=== PATIENT | female | born 1975 | race Caucasian/White ===

== ENCOUNTER 2020-05-08 11:06 | Emergency (ER) | payer MEDICAID, SELFPAY ==
[2020-05-08 11:07] VITALS: BP 189/94; PULSE 99; RESP 18; TEMP 36.3; O2SAT 100; BMI 34.7
--- NOTE | 2020-05-08 11:21 | VDLE_ITS ---
Reason For Study: Pain RIGHT LEFT CFV is compressible, spontaneous, phasic, GSV is normal. competent and demonstrates normal CFV is compressible, spontaneous, phasic, augmentation. competent, and demonstrates normal Procedure augmentation. Exam performed portable in ED. FV is compressible, spontaneous, phasic, A preliminary report was called and/or faxed competent and demonstrates normal to Dr. El. augmentation. POP V is compressible, spontaneous, phasic, competent and demonstrates normal augmentation. T/P Trunk is compressible. PTV is compressible. LT PerV is compressible. Dilated, non compressible varicose vein noted Lt lateral, mid calf consistent with acute SVT. Interpretation Summary There is no evidence of left lower extremity deep vein thrombosis. Left great saphenous vein appears patent and compressible segmentally. Superficial thrombophlebitis left lateral mid calf varicose vein. Patent and compressible right common femoral vein Ordering Physician: Rae El Referring Physician: Ale Montilla Performed By: Denise Patel, TIARRA, RVT
--- NOTE | 2020-05-08 11:24 | ED.DCSUM_ITS ---
- ER Visit Summary Date of Service: 05/08/20 Chief Complaint: Left calf pain History of Present Illness: The patient is a 44 F presenting with left calf pain. Patient states this started 2 days ago. She denies injury. Denies recent travel. No personal history of DVT or PE. She does have multiple family members who have had DVT in the past. She denies chest pain or shortness of breath. Denies fever. Denies other complaints. Physical Examination: Vitals are stable. Patient is afebrile. Alert no acute distress. HEENT exam is unremarkable. Neck is supple. Lungs are clear and equal bilaterally. Heart is regular rate and rhythm. Extremities mild left calf tenderness. Varicose veins. Normal pulses. Skin is warm and dry. No focal neurologic deficit. Remainder of exam is unremarkable. Emergency Department Course and Treatment: Venous Doppler left lower extremity shows no evidence of DVT. Noncompressible varicose vein left lateral mid calf consistent with acute SVT. She was advised to take aspirin and use warm compresses. Advised to follow-up with her primary care physician. Advised return to ED for worsening complaints. Disposition: Discharged home Impression: Superficial thrombophlebitis This note was generated with [employer] dictation software. It may contain incorrect words, spelling, and punctuation that were not noted in review of the chart prior to signing ED Disposition - Plan for ED Patient: Referrals: Ale Montilla MD [Primary Care Provider] -
--- NOTE | 2020-05-08 12:35 | ED.DEP ---
ED Disposition - Plan for ED Patient: Instructions: ED Phlebitis Superficial Referrals: Ale Montilla MD [Primary Care Provider] -
== END 2020-05-08 12:41 | disposition home or self-care (01) ==
LOC: ED 12:00
PROVIDERS: Emergency Provider Emergency Medicine; PCP Internal Medicine
DX: I80.252 Phlebitis and thrombophlebitis of left calf muscular vein (principal)
CPT/HCPCS: 93971; 99282

== ENCOUNTER → 2021-01-24 10:16 | Outpatient (CLI) | payer MEDICAID, SELFPAY ==
--- NOTE | 2021-01-24 10:24 | MRI_ITS ---
STUDY: MRI LUMBAR SPINE WITHOUT CONTRAST REASON FOR EXAM: Female, 45 years old. SPONDYLOSIS WITH RADICULOPATHY TECHNIQUE: Standardized fat and water weighted pulse sequences were obtained in the sagittal and axial planes. COMPARISON: 12/24/2018 FINDINGS: T12-L1: Normal endplates. Normal disc height, hydration and morphology. Normal bilateral facet joints. Normal central canal and bilateral lateral recesses. Normal bilateral intervertebral neural foramina. Normal lumbar lordosis. There is no substantial scoliosis. Normal conus medullaris that terminates at the L1/L2. L1-2: Normal endplates. Normal disc height, hydration and morphology. Normal bilateral facet joints. Normal central canal and bilateral lateral recesses. Normal bilateral intervertebral neural foramina. L2-3: Normal endplates. Normal disc height, hydration and morphology. Normal bilateral facet joints. Normal central canal and bilateral lateral recesses. Normal bilateral intervertebral neural foramina. L3-4: Interval posterior decompression and transpedicular fixation with anatomic alignment with no spinal stenosis or neural foraminal stenosis. There is a postoperative seroma posterior to the thecal sac without mass effect. L4-5: Interval posterior decompression and transpedicular fixation with anatomic alignment and no spinal stenosis or neural foraminal stenosis. There is a postoperative seroma posterior to the thecal sac without mass effect. L5-S1: Interval posterior decompression. Mild broad disc protrusion asymmetric to the left similar to the prior study with mild spinal stenosis and mild bilateral neural foraminal stenosis. Normal visualized sacral ala. Normal visualized paraspinous soft tissue structures. MRI/Spine Lumbar (Routine) IMPRESSION: Interval posterior decompression and transpedicular fixation from L3 through L5 with no severe spinal stenosis or neural foraminal stenosis. Electronically Signed: Ermias Crockett MD at 16:14 EDT Tel , Service support ,
== END ==
PROVIDERS: PCP Internal Medicine; Referring Provider Orthopaedic Surgery; Visit Provider Orthopaedic Surgery
DX: M47.26 Other spondylosis with radiculopathy, lumbar region (principal)
CPT/HCPCS: 72148

== ENCOUNTER 2021-05-04 20:19 | Emergency (ER) | payer MEDICAID, SELFPAY ==
[2021-05-04 20:20] VITALS: BP 177/91; PULSE 100; RESP 16; TEMP 36.3; O2SAT 99; BMI 34.2
--- NOTE | 2021-05-04 20:46 | ED.VIS.FALL ---
HPI HPI - Fall History of Present Illness Chief Complaint: Fall Informant: patient Occured/Mechanism Occurred: Yesterday Mechanism/Context: Yes same level fall and Yes slip Usually ambulates: Without assistance Pain/Injury Location: Low back and posterior left hip Pain Location: back Quality of Pain: Sharp and Aching Worsened by: Standing Relieved by: Sitting Narrative Narrative: Patient presents after a fall that occurred yesterday. Patient states she slipped on a wet floor and fell backwards. Patient states she landed on her buttocks and low back. Patient is concerned because she has had a fusion of her lower lumbar area. Patient states the pain radiates into her left foot. Patient states she occasionally gets foot drop due to prior radiculopathy. Patient states her pain is sharp and aching. Patient states her pain is worse with prolonged standing. Patient states her pain is better with sitting. Patient admits to some numbness and tingling in her left leg. Patient denies any head injury or loss of consciousness. [facility] Medical History (Updated 05/04/21 @ 22:[address] Aniceto Gilbert, ) Diabetes Hypercholesterolemia Hypertension Lumbar radiculopathy Home Medications albuterol sulfate [Ventolin HFA] 1 - 2 puff INHALATION Q4H PRN PRN #1 inhaler 12/23/15 [Rx Last Taken Unknown] glipizide 10 mg PO BIDAC 12/23/15 [History Last Taken Unknown] metformin 500 mg PO BID 12/23/15 [History Last Taken Unknown] meloxicam [Mobic] 15 mg PO DAILY 05/03/16 [History Last Taken Unknown] ferrous sulfate [Iron] 325 mg PO BID 04/06/17 [History Last Taken Unknown] hydrochlorothiazide 25 mg PO DAILY 04/06/17 [History Last Taken Unknown] atorvastatin 10 mg PO DAILY 05/08/20 [History Last Taken Unknown] dulaglutide 1.5 mg SQ QWEEK 05/08/20 [History Last Taken Unknown] multivitamin 1 ea PO DAILY 05/08/20 [History Last Taken Unknown] sitagliptin 25 mg PO DAILY 05/08/20 [History Last Taken Unknown] prednisone 40 mg PO DAILY #8 tablet 05/04/21 [Rx Last Taken Unknown] Allergy/AdvReac Type Severity Reaction Status Date / Time erythromycin base Allergy Rash Verified 05/04/21 20:19 latex Allergy Rash Verified 05/04/21 20:19 nalbuphine HCl [From Nubain] Allergy Rash Verified 05/04/21 20:19 sulfamethoxazole Allergy Rash Verified 05/04/21 20:19 [From Bactrim] trimethoprim [From Bactrim] Allergy Rash Verified 05/04/21 20:19 Surgical History H/O section History of herniorrhaphy Hx of cholecystectomy S/P lumbar fusion Status post right foot surgery Social History Smoking Status: Current every day smoker tobacco type: cigarettes ROS ROS ED Constitutional Constitutional ED: Denies chills or fever(s) Eyes Eyes: Denies blurry vision or change in vision ENT ENT ED: Denies rhinorrhea or sore throat Cardiovascular Cardiovascular: Denies chest pain or palpitations Respiratory/Chest Respiratory/Chest: Reports cough; Denies dyspnea Gastrointestinal Gastrointestinal: Denies nausea or vomiting Genitourinary Genitourinary ED: Denies dysuria or hematuria Musculoskeletal Musculoskeletal: Reports back pain and neck pain Integumentary Denies abscess or rash Neurologic Neurologic: Reports headache(s); Denies weakness Allergic/Immunologic Allergic/Immunologic ED: Denies mouth swelling or urticaria EXAM Physical Exam Const Vital Signs: 05/04/21 20:20 05/04/21 21:01 Temperature 97.4 F L Temperature Source Temporal Pulse Rate 100 Respiratory Rate 16 Respiratory Effort Normal Respiratory Pattern Normal Blood Pressure 177/91 H Blood Pressure Mean 119 Pulse Ox 99 Oxygen Delivery Method Room Air Room Air Positive well nourished, well developed and obese General Appearance ED: well developed Nutritional Appearance: obese HEENT Reports normocephalic atraumatic Neck full ROM and supple Back/Spine Back/Spine Narrative: There is tenderness over the left lower lumbar paraspinal muscles and posterior left hip. There is no bony crepitance or step-off. Thoracic Spine / Upper Back: pain with ROM Lumbar Spine / Lower Back: paraspinal muscle tenderness left and straight leg raise negative bilaterally Neuro oriented x3, CN's II-XII intact bilaterally, moves all extremities, no focal motor deficits and no sensory deficits noted Sensorium / Orientation: alert Motor Exam: strength 5/5 throughout Psych mental status grossly normal MDM MDM MDM Narrative Medical decision making narrative: Patient was given a dose of [place] here. X-rays of the lumbar spine were obtained. There are 3 views. On my interpretation, there is no acute fracture or spondylolisthesis. The fusion is intact. There is no fracture of the hardware. Radiologist also interpreted the x-rays and agrees. Patient was given a dose of prednisone here. Patient was given a prescription for a short course of prednisone. Patient was instructed use ice to the area. Patient was instructed to follow-up with her primary care physician in 5 to 7 days. Patient understood and was agreeable with the plan. All questions were answered. Radiography Diagnostic Testing: Radiology Impression Lumbar Spine X-Ray 05/04/21 20:58 IMPRESSION: No acute lumbar spine abnormality or major interval change. Electronically Signed: Loi ChavezonDO at 21:25 EDT Tel [phone], Service support , Discharge Plan Triage Chief Complaint: Fall ED Provider: Aniceto Gilbert Dx/Rx/DC Orders Clinical Impression: Left lumbar radiculopathy Instructions: ED Back Pain (Acute or Chronic) Prescriptions: New prednisone 20 MG tablet 40 mg PO DAILY Qty: 8 RF: 0 No Action glipizide 10 MG tablet 10 mg PO BIDAC RF: 0 metformin 500 MG tablet 500 mg PO BID RF: 0 albuterol sulfate [Ventolin HFA] 1 INHALER inhaler 1 - 2 puff inhalation Q4H PRN PRN (Reason: Wheezing) Qty: 1 RF: 0 meloxicam [Mobic] 15 MG tablet 15 mg PO DAILY RF: 0 ferrous sulfate [Iron (ferrous sulfate)] 325 MG tablet 325 mg PO BID RF: 0 hydrochlorothiazide 12.5 MG capsule 25 mg PO DAILY RF: 0 multivitamin 1 EACH tablet 1 ea PO DAILY RF: 0 atorvastatin 10 MG tablet 10 mg PO DAILY RF: 0 sitagliptin 25 MG tablet 25 mg PO DAILY RF: 0 dulaglutide 1.5 MG/0.5 ML pen injector 1.5 mg SQ QWEEK RF: 0 Primary Care Provider: Ale Montilla Referrals: Ale Montilla MD [Primary Care Provider] - 5-7 Days Disposition Disposition: Home, Self Care
--- NOTE | 2021-05-04 20:58 | RAD_ITS ---
STUDY: X-RAY - LUMBAR SPINE REASON FOR EXAM: Female, 45 years old. Fall yesterday with lower back pain. History of L3-L5 fusion. Bilateral radiculopathy with numbness and tingling in the feet and toes. TECHNIQUE: 3 view(s) of the lumbar spine were obtained. COMPARISON: MRI of the lumbar spine, 01/26/2021. FINDINGS: Normal lumbar lordosis. There is no substantial scoliosis. There is a normal alignment of the vertebrae. There is posterior fusion of L3-L5. The hardware is intact. There is evidence of L3-L5 laminectomies. There is minimal endplate spondylosis at the L to 3 level and at L5-S1. Minimal disc space narrowing at L5 5 S1. The soft tissue structures are unremarkable. RAD/Lumbar Spine 2 or 3 Views IMPRESSION: No acute lumbar spine abnormality or major interval change. Electronically Signed: Loi Lira DO at 21:25 EDT Tel [phone], Service support ,
[2021-05-04] MEDS: HYDROcodone Bitartrate/Apap 5/325 Tablet PO (21:00)
[2021-05-04] MEDS: predniSONE 20 MG Tablet 40 MG PO (22:26)
== END 2021-05-04 22:27 | disposition home or self-care (01) ==
PROVIDERS: Emergency Provider Emergency Medicine; PCP Internal Medicine
DX: M54.16 Radiculopathy, lumbar region (principal); F17.210 Nicotine dependence, cigarettes, uncomplicated; E11.9 Type 2 diabetes mellitus without complications; E78.00 Pure hypercholesterolemia, unspecified; I10 Essential (primary) hypertension; W01.0XXA Fall on same level from slipping, tripping and stumbling without subsequent striking against object, initial encounter; Z79.1 Long term (current) use of non-steroidal anti-inflammatories (NSAID); Z79.52 Long term (current) use of systemic steroids; Z79.84 Long term (current) use of oral hypoglycemic drugs
CPT/HCPCS: 72100; 99283

== ENCOUNTER 2021-12-24 11:22 | Emergency (ER) | payer MEDICAID, SELFPAY ==
[2021-12-24 11:24] VITALS: BP 169/91; PULSE 86; RESP 17; TEMP 36.8; O2SAT 99; BMI 34.9
--- NOTE | 2021-12-24 11:41 | EX.ED.DYSGE1 ---
HPI History of Present Illness Chief Complaint: Edema Detail of Chief Complaint: Swelling face, hands and feet Informant: patient Onset/Context/Timing Onset: Days Context: Sudden Onset Timing: Continuous Quality: Swelling Location: Face, hands and feet Current Severity: Mild Worsened by: Nothing Relieved by: Nothing Associated Symptoms Associated Symptoms: None Narrative Narrative: Patient is a 46-year-old woman with history of kidney disease, type 2 diabetes, hypertension and hypercholesterolemia who presents with swelling of her face, hands and feet. She became concerned when she noted her face is swollen. She is not on an AMBAR inhibitor. She denies headache, visual, ocular auditory symptoms. She denies cardiac Rester symptoms. She denies GI symptoms. She denies paresthesia, anesthesia medics. She denies history of congestive heart failure or heart disease. She denies orthopnea or PND. Prior similar symptoms: No Recent Illness/Hospitalization: No PFSH PFS Medical History Diabetes Hypercholesterolemia Hypertension Lumbar radiculopathy Home Medications albuterol sulfate [Ventolin HFA] 1 - 2 puff INHALATION Q4H PRN PRN #1 inhaler 12/23/15 [Rx Last Taken Unknown] glipizide 10 mg PO BIDAC 12/23/15 [History Last Taken Unknown] metformin 500 mg PO BID 12/23/15 [History Last Taken Unknown] meloxicam [Mobic] 15 mg PO DAILY 05/03/16 [History Last Taken Unknown] ferrous sulfate [Iron] 325 mg PO BID 04/06/17 [History Last Taken Unknown] hydrochlorothiazide 25 mg PO DAILY 04/06/17 [History Last Taken Unknown] atorvastatin 10 mg PO DAILY 05/08/20 [History Last Taken Unknown] dulaglutide 1.5 mg SQ QWEEK 05/08/20 [History Last Taken Unknown] multivitamin 1 ea PO DAILY 05/08/20 [History Last Taken Unknown] sitagliptin 25 mg PO DAILY 05/08/20 [History Last Taken Unknown] prednisone 40 mg PO DAILY #8 tablet 05/04/21 [Rx Last Taken Unknown] Allergy/AdvReac Type Severity Reaction Status Date / Time erythromycin base Allergy Rash Verified 12/24/21 11:23 latex Allergy Rash Verified 12/24/21 11:23 nalbuphine HCl [From Nubain] Allergy Rash Verified 12/24/21 11:23 sulfamethoxazole Allergy Rash Verified 12/24/21 11:23 [From Bactrim] trimethoprim [From Bactrim] Allergy Rash Verified 12/24/21 11:23 Surgical History H/O section History of herniorrhaphy Hx of cholecystectomy S/P lumbar fusion Status post right foot surgery Social History (Updated 12/24/21 @ 11:[address] Lester Carpenter MD) household members: none Smoking Status: Current every day smoker tobacco type: cigarettes substance use type: does not use ROS ROS ED Constitutional Constitutional ED: Denies chills, fever(s), subjective, sweats or weight loss Eyes Eyes: Denies blurry vision, change in vision or diplopia ENT ENT ED: Denies ear pain, rhinorrhea or sore throat Cardiovascular Cardiovascular: Denies chest pain, orthopnea, palpitations, paroxysmal nocturnal dyspnea or racing heartbeat Respiratory/Chest Respiratory/Chest: Denies cough, dyspnea, dyspnea on exertion, orthopnea or paroxysmal nocturnal dyspnea Gastrointestinal Gastrointestinal: Denies abdominal pain, diarrhea, melena, nausea or vomiting Genitourinary Genitourinary ED: Reports urinary frequency; Denies dysuria or hematuria Musculoskeletal Musculoskeletal: Denies arthralgias, back pain, myalgias or neck pain Integumentary Denies Abrasions or rash Neurologic Neurologic: Denies paresthesias or weakness Endocrine Endocrinology: Denies polydipsia, polyphagia or polyuria EXAM Physical Exam Const Vital Signs: 12/24/21 11:24 12/24/21 12:08 Temperature 98.3 F Temperature Source Temporal Pulse Rate 86 Respiratory Rate 17 Respiratory Effort Normal Respiratory Pattern Normal Blood Pressure 169/91 H Blood Pressure Mean 117 Pulse Ox 99 Oxygen Delivery Method Room Air Positive well nourished, well developed and obese General Appearance ED: well developed and NAD; Negative for cyanotic, diaphoretic or pallor Nutritional Appearance: obese HEENT Reports TM's clear and moist mucous membranes HEENT Narrative: There is no evidence of angioedema. Uvula is midline. There is no erythema of the posterior pharynx. Negative for trauma or tenderness Tympanic Membrane ED: Yes TM's clear Eyes PERRL and EOMs intact bilaterally General Eye ED: Negative for pale conjunctiva or scleral icterus Neck no lymphadenopathy, supple and no JVD Neck Narrative: Trachea is midline. There is no in-store expiratory stridor. Resp normal respiratory effort and clear to auscultation bilaterally Cardio regular rate, regular rhythm, S1 normal heart sound, S2 normal heart sound and no murmurs GI normal to inspection, nondistended, normoactive bowel sounds, non-tender and non-distended; Negative for hepatosplenomegaly Palpation: soft Back/Spine no CVA tenderness Thoracic Spine / Upper Back: Negative for thoracic spinal tenderness or paraspinal muscle tenderness Extremity normal to inspection Extremity Narrative: DP and PT pulse are palpable General Extremety ED: Negative for edema or tenderness General Extremity: Negative for edema Neuro oriented x3, CN's II-XII intact bilaterally and no sensory deficits noted Sensorium / Orientation: alert Motor Exam: strength 5/5 throughout Psych mental status grossly normal Skin no rashes or lesions noted and no wounds General Skin Exam: Negative for jaundice or pallor MDM MDM MDM Narrative Medical decision making narrative: There is swelling of her fingers right and left hand. There is no pitting edema. There is no angioedema. Since patient complained of frequency will obtain electrolyte panel assess glucose and anion gap. Also will assess albumin. UA to assess for proteinuria. On my exam there is no pitting edema and uncertain whether her fingers are just shortened stubby or truly swollen. Lab Data Attestation: I reviewed the patient's lab results. Lab results narrative: Albumin and globulin total protein are normal. BUN and creatinine are normal. There is no proteinuria noted. Labs: Laboratory Results - last 24 hr 12/24/21 12/24/21 11:50 12:00 Sodium 137 Potassium 3.8 Chloride 109 H Carbon Dioxide 22.0 Anion Gap 6 BUN 7 Creatinine 0.60 Estim Creat Clear Calc 94.85 Est GFR (MDRD) Af Amer 137 Est GFR (MDRD) Non-Af 113 BUN/Creatinine Ratio 11.6 Glucose 215 H Calcium 8.5 Total Bilirubin 0.20 AST 11 L ALT 28 Alkaline Phosphatase 99 Total Protein 7.1 Albumin 3.6 Globulin 3.5 Albumin/Globulin Ratio 1.0 Urine Color Yellow Urine Clarity Sl. Cloudy Urine pH 6.0 Ur Specific [place] 1.015 Urine Protein 15 H Urine Glucose (UA) 1000 H Urine Ketones Negative Urine Occult Blood Negative Urine Nitrite Negative Urine Bilirubin Negative Urine Urobilinogen Normal Ur Leukocyte Esterase Negative Urine RBC 0 SEEN Urine WBC 0 SEEN Ur Squamous Epith Cells 0-5 SEEN Urine Bacteria 0 SEEN Urine Mucus 0 SEEN Discharge Plan Triage Chief Complaint: Edema ED Provider: Lester Carpenter Dx/Rx/DC Orders Clinical Impression: Bilateral hand swelling, Hypertension, Diabetes Instructions: ED Lymphedema Prescriptions: No Action glipizide 10 MG tablet 10 mg PO BIDAC RF: 0 metformin 500 MG tablet 500 mg PO BID RF: 0 albuterol sulfate [Ventolin HFA] 1 INHALER inhaler 1 - 2 puff inhalation Q4H PRN PRN (Reason: Wheezing) Qty: 1 RF: 0 meloxicam [Mobic] 15 MG tablet 15 mg PO DAILY RF: 0 ferrous sulfate [Iron (ferrous sulfate)] 325 MG tablet 325 mg PO BID RF: 0 hydrochlorothiazide 12.5 MG capsule 25 mg PO DAILY RF: 0 multivitamin 1 EACH tablet 1 ea PO DAILY RF: 0 atorvastatin 10 MG tablet 10 mg PO DAILY RF: 0 sitagliptin 25 MG tablet 25 mg PO DAILY RF: 0 dulaglutide 1.5 MG/0.5 ML pen injector 1.5 mg SQ QWEEK RF: 0 prednisone 20 MG tablet 40 mg PO DAILY Qty: 8 RF: 0 Primary Care Provider: Jarad Tanner Referrals: Jarad Tanner MD [Primary Care Provider] - 3-5 Days if not improving Disposition Disposition: Home, Self Care
[2021-12-24 12:14] LABS: AST(SGOT) 11 U/L (15-37); Alanine Aminotransfer ALT/SGPT 28 U/L (13-56); Albumin, Serum 3.6 g/dL (3.2-5.0); Alkaline Phosphatase 99 U/L (45-117); Anion Gap 6 (5-15); BUN 7 mg/dL (7-18); BUN/Creat Ratio 11.6 RATIO (10-20); Calcium,Total 8.5 mg/dL (8.5-10.1); Chloride 109 mmol/L (98-107); EST Glomerular Filtration Rate 113 mL/min (>60); Est Glom Filt Rate - Afr Amer 137 mL/min (>60); Estimated Creatinine Clearance 94.85 ml/min; Globulin 3.5 g/dL (2.2-4.2); Glucose 215 mg/dL (74-106); Potassium 3.8 mmol/L (3.5-5.1); Protein, Total 7.1 g/dL (6.4-8.2); Sodium Level 137 mmol/L (136-145)
[2021-12-24 12:15] LABS: Bacteria 0 SEEN /hpf (None Seen); Mucous, Urine 0 SEEN /hpf (<or=2+); Red Blood Cells-Urine 0 SEEN /hpf (0-5); White Blood Cells 0 SEEN /hpf (0-5)
[2021-12-24 12:30] LABS: Color, Urine Yellow (Yellow); Glucose, Dipstick 1000 mg/dl (Normal); Ketone-Dipstick Negative (Negative); Leukocyte Esterase-Dipstick Negative /ul (Negative); Nitrite-Dipstick Negative (Negative); Occult Blood-Urine Negative /ul (Negative); Protein-Dipstick 15 mg/dl (Negative); Specific Gravity, Urine 1.015 (1.002-1.030); Urine Bilirubin Dipstick Negative (Negative); Urine Clarity Sl. Cloudy (Clear); Urine Urobilinogen Normal (Normal)
[2021-12-24 12:50] LABS: Squamous Epithelial Cells - UA 0-5 SEEN /hpf (5-10)
[2021-12-24 13:18] VITALS: BP 134/78; PULSE 88; RESP 12; TEMP 36.9; O2SAT 98
== END 2021-12-24 13:18 | disposition home or self-care (01) ==
PROVIDERS: Emergency Provider Emergency Medicine; PCP Internal Medicine; Visit Provider Emergency Medicine
DX: M79.89 Other specified soft tissue disorders (principal); E11.9 Type 2 diabetes mellitus without complications; E78.00 Pure hypercholesterolemia, unspecified; F17.210 Nicotine dependence, cigarettes, uncomplicated; I10 Essential (primary) hypertension
CPT/HCPCS: 80053; 81001; 99282

== ENCOUNTER 2022-01-15 15:55 | Emergency (ER) | payer MEDICAID, SELFPAY ==
[2022-01-15 15:56] VITALS: BP 155/84; PULSE 93; RESP 18; TEMP 36.3; O2SAT 98; BMI 32.9
--- NOTE | 2022-01-15 16:50 | RAD_ITS ---
STUDY: UPRIGHT PA CHEST X-RAY OF 1701 HOURS ON 01/15/2022 REASON FOR EXAM: 46-year-old female with chest pain and shortness of breath. TECHNIQUE: A single view upright PA chest x-ray was performed per protocol. COMPARISON: May 03, 2016. FINDINGS: Mild osteophytic degenerative changes of the thoracic spine. Otherwise, the osseous structures are normal. There is no cardiomegaly or heart failure. No pulmonary infiltrates, atelectasis, effusion, pulmonary mass lesions. The upper portions of lumbar House rods are noted. There is no significant interval change in appearance of the chest since the previous study of May 03, 2016. RAD/Chest 1 View IMPRESSION: 1. No active cardiopulmonary disease. 2. Mild osteophytic degenerative changes of the thoracic spine. 3. No interval change since the previous study of May 03, 2016. Electronically Signed: Surinder Ashford MD at 17:23 EDT ,
[2022-01-15 17:22] VITALS: BP 146/93; O2SAT 100
[2022-01-15 17:24] VITALS: O2SAT 100
--- NOTE | 2022-01-15 17:31 | ED.VIS.CHEST ---
HPI History of Present Illness Chief Complaint: Shortness of Breath Informant: patient Onset/Context/Timing Onset: Days (9-10) Activity at onset: gradual and exertion Timing: Intermittent Quality: Positive for Dull Location: Left Parasternal and Left Chest Relieved By: Rest Associated Symptoms: Positive for Nausea, Vomiting, Diaphoresis, Dyspnea, Cough, Fever, Lightheadedness, Acid Reflux and Palpitations Narrative Narrative: Patient presents with left-sided chest pain that has been intermittent over the last 9 to 10 days. Patient states that she was recently diagnosed with pneumonia. Patient followed up with the urgent care today and was seen by the physician religious assistant there. Patient was then referred to the emergency department for possible cardiac work-up and PE work-up. Patient states her pain is worse with exertion and better with rest. Patient admits to some nausea, vomiting, and diaphoresis. Patient admits to some cough and fever due to her pneumonia recently. Patient also admits to some lightheadedness and dizziness. Patient had a recent caudal block for her back pain but denies any other recent surgery. CVD Risk Factors: Positive for Hypertension, Diabetes, Family History 1' </=55 and Smoking; Negative for Hypercholesterolemia PE Risk Factors: Positive for Recent Travel/Surgery; Negative for Recent Immobilization, Prior DVT or PE, Cancer and OCP + Smoking + >/=35 PFSH PFSH Medical History Diabetes Hypercholesterolemia Hypertension Lumbar radiculopathy Home Medications albuterol sulfate [Ventolin HFA] 1 - 2 puff INHALATION Q4H PRN PRN #1 inhaler 12/23/15 [Rx Last Taken Unknown] glipizide 10 mg PO BIDAC 12/23/15 [History Last Taken Unknown] metformin 500 mg PO BID 12/23/15 [History Last Taken Unknown] meloxicam [Mobic] 15 mg PO DAILY 05/03/16 [History Last Taken Unknown] ferrous sulfate [Iron] 325 mg PO BID 04/06/17 [History Last Taken Unknown] hydrochlorothiazide 25 mg PO DAILY 04/06/17 [History Last Taken Unknown] atorvastatin 10 mg PO DAILY 05/08/20 [History Last Taken Unknown] dulaglutide 1.5 mg SQ QWEEK 05/08/20 [History Last Taken Unknown] multivitamin 1 ea PO DAILY 09/07/20 [History Last Taken Unknown] sitagliptin 25 mg PO DAILY 05/08/20 [History Last Taken Unknown] prednisone 40 mg PO DAILY #8 tablet 05/04/21 [Rx Last Taken Unknown] Allergy/AdvReac Type Severity Reaction Status Date / Time erythromycin base Allergy Rash Verified 01/15/22 15:58 latex Allergy Rash Verified 01/15/22 15:58 nalbuphine HCl [From Nubain] Allergy Rash Verified 01/15/22 15:58 sulfamethoxazole Allergy Rash Verified 01/15/22 15:58 [From Bactrim] trimethoprim [From Bactrim] Allergy Rash Verified 01/15/22 15:58 Surgical History H/O section History of herniorrhaphy Hx of cholecystectomy S/P lumbar fusion Status post right foot surgery Social History household members: none Smoking Status: Current every day smoker tobacco type: cigarettes substance use type: does not use ROS ROS ED Constitutional Constitutional ED: Reports chills, fever(s) and subjective Eyes Eyes: Denies blurry vision or change in vision ENT ENT ED: Reports rhinorrhea and sore throat Cardiovascular Cardiovascular: Reports chest pain and palpitations Respiratory/Chest Respiratory/Chest: Reports cough and dyspnea Gastrointestinal Gastrointestinal: Reports nausea and vomiting; Denies abdominal pain Genitourinary Genitourinary ED: Denies dysuria or hematuria Musculoskeletal Musculoskeletal: Reports back pain and neck pain Integumentary Denies abscess or rash Neurologic Neurologic: Reports headache(s); Denies weakness Allergic/Immunologic Allergic/Immunologic ED: Denies mouth swelling or urticaria EXAM Physical Exam Const Vital Signs: 01/15/22 15:56 01/15/22 17:22 01/15/22 17:24 Temperature 97.3 F L Temperature Source Temporal Pulse Rate 93 Respiratory Rate 18 Respiratory Effort Normal Non-Labored Respiratory Depth Normal Respiratory Pattern Normal Blood Pressure 155/84 H 146/93 H Blood Pressure Mean 107 110 Pulse Ox 98 100 Oxygen Delivery Method Room Air Room Air Room Air 01/15/22 17:57 01/15/22 19:58 Temperature Temperature Source Pulse Rate 88 Respiratory Rate 17 Respiratory Effort Respiratory Depth Respiratory Pattern Blood Pressure 139/90 H Blood Pressure Mean 106 Pulse Ox 100 98 Oxygen Delivery Method Room Air Room Air Positive well nourished, well developed and obese General Appearance ED: well developed and NAD Nutritional Appearance: obese HEENT normocephalic and atraumatic Eyes PERRL and EOMs intact bilaterally Neck supple and no JVD Chest Wall Chest Narrative: There is tenderness to palpation over the left upper chest. There is no bony crepitance or step-off. There is no subcutaneous emphysema noted. Resp normal respiratory effort and clear to auscultation bilaterally Effort and Inspection: Negative for respiratory distress Cardio regular rate, regular rhythm and no murmurs GI normal to inspection, nondistended, normoactive bowel sounds, soft to palpation, non-tender and non-distended Extremity normal to inspection General Extremety ED: Negative for edema or tenderness General Extremity: Negative for edema Neuro oriented x3, CN's II-XII intact bilaterally and no sensory deficits noted Sensorium / Orientation: awake and alert Motor Exam: strength 5/5 throughout Psych mental status grossly normal Heart Score History: Slightly/Non-Suspicious ECG: Normal Age: >45 - <65 years Risk Factors: >/= 3 Risk Factors or History of CAD Troponin: </= Normal Limit Score: 3 MDM MDM MDM Narrative Medical decision making narrative: EKG was obtained. On my interpretation, it showed a normal sinus rhythm with a rate of 89. [place] interval, QRS interval, and QTc intervals were all normal. [place] was normal. There are no acute ST or T wave changes. Portable 1 view chest x-ray was obtained. On my interpretation, lung beltran are clear. There is normal cardiac silhouette. Bony thorax is normal. There is no acute process noted. Radiologist also interpreted the x-ray and agrees. CBC shows a mild leukocytosis of 19.6. Basic metabolic profile was within normal limits. High-sensitivity troponin was less than 3. CTA of the chest was obtained. There is no evidence of pulmonary embolism. There is some bronchitis noted. There is no aortic dissection noted. This was interpreted by the radiologist and reviewed by myself. Patient was advised of her findings. Patient has a HEART score of 3. Patient was advised that this is low risk for acute cardiac event. Patient was instructed to follow-up with her primary care physician in 5 to 7 days. Patient was instructed to finish her antibiotics until gone. Patient understood and was agreeable with the plan. All questions were answered. Lab Data Attestation: I reviewed the patient's lab results. Labs: Laboratory Results - last 24 hr 01/15/22 01/15/22 17:48 17:48 WBC 19.6 H RBC 4.98 Hgb 14.8 Hct 42.6 MCV 85.5 MCH 29.7 MCHC 34.7 RDW Std Deviation 39.3 RDW Coeff of [place] 12.5 Plt Count 415 MPV 9.4 Immature Gran % (Auto) 1.700 H Neut % (Auto) 63.3 Lymph % (Auto) 26.6 [place] % (Auto) 6.8 Eos % (Auto) 1.0 Baso % (Auto) 0.6 Absolute Neuts (auto) 12.4 H Absolute Lymphs (auto) 5.21 H Nucleated RBC % 0 Differential Comment SCANNED Sodium 138 Potassium 3.3 L Chloride 102 Carbon Dioxide 28.0 Anion Gap 8 BUN 16 Creatinine 0.67 Estim Creat Clear Calc 84.94 Est GFR (MDRD) Af Amer 121 Est GFR (MDRD) Non-Af 100 BUN/Creatinine Ratio 24.0 H Glucose 109 H Calcium 9.2 Troponin I High Sens < 3 L Radiography Chest X-Ray - ED: 1 View, Read by ED Physician, Read by Radiologist and No Acute Disease Diagnostic Testing: Clinical Impression(s) from Imaging Studies Chest X-Ray 01/15/22 16:50 IMPRESSION: 1. No active cardiopulmonary disease. 2. Mild osteophytic degenerative changes of the thoracic spine. 3. No interval change since the previous study of May 03, 2016. Electronically Signed: Surinder Ashford MD at 17:23 EDT , Chest CTA 01/15/22 17:36 IMPRESSION: 1. No findings of pulmonary thromboembolism. 2. No evidence of a thoracic aortic dissection or aneurysm. 3. Mild bilateral bronchial wall thickening that may represent a mild bilateral bronchitis. 4. No evidence for pneumonia or pneumonitis. 5. No other evidence of active cardiopulmonary disease. Electronically Signed: Surinder Ashford MD at 19:39 EDT , EKG Initial EKG: Attestation: I personally reviewed and interpreted this EKG as follows: Interpretation: Sinus Rhythm (89) and No Acute Injury Pattern Prior EKG tracings: available for review Prior: Unchanged (12/23/2015) Discharge Plan Triage Chief Complaint: Shortness of Breath ED Provider: Aniceto Gilbert Dx/Rx/DC Orders Clinical Impression: Chest pain, Bronchitis Instructions: ED Chest Pain, Uncertain Cause Prescriptions: No Action glipizide 10 MG tablet 10 mg PO BIDAC RF: 0 metformin 500 MG tablet 500 mg PO BID RF: 0 albuterol sulfate [Ventolin HFA] 1 INHALER inhaler 1 - 2 puff inhalation Q4H PRN PRN (Reason: Wheezing) Qty: 1 RF: 0 meloxicam [Mobic] 15 MG tablet 15 mg PO DAILY RF: 0 ferrous sulfate [Iron (ferrous sulfate)] 325 MG tablet 325 mg PO BID RF: 0 hydrochlorothiazide 12.5 MG capsule 25 mg PO DAILY RF: 0 multivitamin 1 EACH tablet 1 ea PO DAILY RF: 0 atorvastatin 10 MG tablet 10 mg PO DAILY RF: 0 sitagliptin 25 MG tablet 25 mg PO DAILY RF: 0 dulaglutide 1.5 MG/0.5 ML pen injector 1.5 mg SQ QWEEK RF: 0 prednisone 20 MG tablet 40 mg PO DAILY Qty: 8 RF: 0 Primary Care Provider: Jarad Tanner Referrals: Jarad Tanner MD [Primary Care Provider] - 3-5 Days Disposition Disposition: Home, Self Care
--- NOTE | 2022-01-15 17:36 | CT_ITS ---
STUDY: PULMONARY AND CHEST CT ANGIOGRAPHY OF 191 HOURS AND 01/15/2022 REASON FOR EXAM: 46-year-old female with dyspnea. RADIATION DOSAGE (If Supplied By Facility): CTDIvol = ( 11.17 ) mGy, DLP = ( 487.19 ) mGycm TECHNIQUE: The examination was performed with the intravenous administration of IV 100mL Isovue-370. Post-processing of the angiographic images was performed, with multiplanar reformation and 3D reconstruction. Individualized dose optimization techniques were used for this CT. COMPARISON: None. FINDINGS: No cardiomegaly. No hilar or mediastinal lymphadenopathy. No pulmonary infiltrates, atelectasis, effusion, or pulmonary mass lesions. Mild bilateral bronchial wall thickening that may represent a mild bilateral bronchitis. There is no evidence of a pneumonia or pneumonitis. No findings of pulmonary thromboembolism. No evidence of a thoracic aortic dissection or aneurysm. CT/CTA Chest W/WO Contrast IMPRESSION: 1. No findings of pulmonary thromboembolism. 2. No evidence of a thoracic aortic dissection or aneurysm. 3. Mild bilateral bronchial wall thickening that may represent a mild bilateral bronchitis. 4. No evidence for pneumonia or pneumonitis. 5. No other evidence of active cardiopulmonary disease. Electronically Signed: Surinder Ashford MD at 19:39 EDT ,
--- NOTE | 2022-01-15 17:36 | EKG12_ITS ---
Test Reason : SOB Blood Pressure : / mmHG Vent. Rate : 089 BPM Atrial Rate : 089 BPM P-R Int : 160 ms QRS Dur : 088 ms QT Int : 368 ms P-R-T Axes : 059 006 057 degrees QTc Int : 447 ms Normal sinus rhythm Normal ECG Confirmed by YOHAN BARRAGAN, JEOVANY ([id number]), society editor PHILLY BONILLA ([id number]) on 01/18/2022 10:47:45 A M Referred By: ARETHA Confirmed By:SANDRA ALMANZAR MD
[2022-01-15 17:57] VITALS: O2SAT 100
[2022-01-15] MEDS: Aspirin 81 MG TAB.CHEW 324 MG PO (18:26)
[2022-01-15 18:28] LABS: Absolute Lymphocyte Count 5.21 X10^3/uL (0.83-4.51); Absolute Neutrophil Count 12.4 X10^3/uL (2.0-7.7); Basophil# 0.11 X10^3/uL; Basophil% 0.6 % (0-1); Hematocrit 42.6 % (37-47); Hemoglobin 14.8 g/dL (12.0-15.0); Lymphocyte # 5.21 X10^3/ul (0.83-4.51); Lymphocyte % 26.6 % (19-41); Mean Corp Hgb Conc 34.7 g/dL (32-36); Mean Corpuscular Hgb 29.7 pg (27.0-32.0); Mean Corpuscular Volume 85.5 fL (81-99); Mean Platelet Vol. 9.4 fl (6.2-12.0); Monocyte# 1.33 X10^3/uL; Monocyte% 6.8 % (0-10); NRBC Flagged by Analyzer 0 % (0-5); Neutrophil # 12.43 X10^3/uL (2.7-7.7); Neutrophil % 63.3 % (47-70); POSITIVE DIFFERENTIAL YES; POSITIVE MORPHOLOGY YES; Platelet Count 415 K/mm3 (150-450); RBC Distribution Width CV 12.5 % (11.6-14.6); RBC Distribution Width SD 39.3 fl (35.1-43.9); Red Blood Count 4.98 M/mm3 (4.2-5.4); White Blood Count 19.6 K/mm3 (4.4-11.0)
[2022-01-15 18:54] LABS: Anion Gap 8 (5-15); BUN 16 mg/dL (7-18); Calcium,Total 9.2 mg/dL (8.5-10.1); Chloride 102 mmol/L (98-107); Creatinine, Serum 0.67 mg/dL (0.55-1.02); EST Glomerular Filtration Rate 100 mL/min (>60); Est Glom Filt Rate - Afr Amer 121 mL/min (>60); Estimated Creatinine Clearance 84.94 ml/min; Glucose 109 mg/dL (74-106); Potassium 3.3 mmol/L (3.5-5.1); Sodium Level 138 mmol/L (136-145); Troponin-I HS (w/2H Reflex) < 3 pg/mL (3.0-54.0)
[2022-01-15 19:33] LABS: Differential Comment SCANNED; Differential Indicated SCAN CRITERIA MET
[2022-01-15 19:58] VITALS: BP 139/90; PULSE 88; RESP 17; O2SAT 98
[2022-01-15 20:22] LABS: Reflex Troponin-HS? (from REC) Y
[2022-01-15 20:45] VITALS: BP 129/84; O2SAT 98
[2022-01-15 21:05] LABS: Troponin-I HS < 3 pg/mL (3.0-54.0)
== END 2022-01-15 20:45 | disposition home or self-care (01) ==
PROVIDERS: Emergency Provider Emergency Medicine; PCP Internal Medicine; Visit Provider Emergency Medicine
DX: J40 Bronchitis, not specified as acute or chronic (principal); E11.9 Type 2 diabetes mellitus without complications; R11.2 Nausea with vomiting, unspecified; R00.2 Palpitations; E78.00 Pure hypercholesterolemia, unspecified; I10 Essential (primary) hypertension; M54.9 Dorsalgia, unspecified; F17.210 Nicotine dependence, cigarettes, uncomplicated; R07.9 Chest pain, unspecified; E66.9 Obesity, unspecified
CPT/HCPCS: 71045; 71275; 80048; 84484; 85025; 93005; 99284; Q9967; A4216

== ENCOUNTER → 2022-04-11 | Outpatient (CLI) | payer MEDICAID, SELFPAY ==
--- NOTE | 2022-04-11 08:32 | CT_ITS ---
STUDY: CT LUMBAR SPINE WITH INTRATHECAL CONTRAST (LUMBAR CT MYELOGRAM) REASON FOR EXAM: Female, 46 years old. SPINAL FUSION RADIATION DOSAGE (If Supplied By Facility): CTDIvol = ( 19.0 ) mGy, DLP = ( 585.40 ) mGycm TECHNIQUE: Transaxial images were obtained from the T12 vertebra through the S1 vertebral level, following intrathecal administration of 20 ml of ISOVUE-M 200 contrast material, performed by Dr. Cazares. Please refer to this physicians technical notes for procedural details. Coronal and sagittal reconstructions were obtained. Individualized dose optimization techniques were used for this CT. COMPARISON: Comparison is made with prior myelogram done earlier today. FINDINGS: Normal lumbar lordosis. There is no substantial scoliosis. Normal vertebrae of the lumbar spine. There is dependent layering of contrast material in the distal thecal sac. The conus medullaris terminates in a normal position at the . There is no demonstrated cauda equina nerve root abnormality or intraspinal mass. L1-2: Normal endplates. Normal disc height and morphology. Normal bilateral facet joints. Normal central canal and bilateral lateral recesses. Normal bilateral intervertebral neural foramina. L2-3: Normal endplates. Normal disc height and morphology. Normal bilateral facet joints. Normal central canal and bilateral lateral recesses. Normal bilateral intervertebral neural foramina. L3-4: The patient is status post laminectomy and interpedicular screw fixation. L4-5: Status post laminectomy and interpedicular screw fixation. Mild degree of disc space narrowing. Spondylosis. L5-S1: Normal endplates. Normal disc height and morphology. Normal bilateral facet joints. Normal central canal and bilateral lateral recesses. Normal bilateral intervertebral neural foramina. Normal visualized sacroiliac joints. No evidence of a CSF leak. 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 CT/Spine Lumbar WITH Contrast IMPRESSION: Status post laminectomy and fusion as described. No evidence of CSF leak. Electronically Signed: Jacobo Cazares MD at 10:52 EDT ,
--- NOTE | 2022-04-11 08:45 | RAD_ITS ---
PROCEDURE: LUMBAR MYELOGRAM DATE OF EXAMINATION: 04/11/2022 INDICATION: Female, 46 years old. Prior laminectomy and fusion. Possible CSF leak. PHYSICIAN: Jacobo Cazares M.D. CONSENT: The patient''s history and physical findings were reviewed. The lumbar myelogram procedure was discussed with the patient prior to signing a consent. SEDATION: Local anesthesia with 3 mL of 1% lidocaine was used. FLUOROSCOPY TIME (if supplied): (1:02) minutes/seconds. Injection Information: 20 cc of ISOVUE-M 200 Number of images obtained: 4 TECHNIQUE: Digital fluoroscopy was used to identify a safe approach for the lumbar myelogram. The back was prepped and draped in usual fashion. Local anesthesia was utilized. Under fluoroscopic guidance a 22-gauge spinal needle was inserted into the spinal canal at the L2-L3 level. Clear spinal fluid was seen . 20 mL of Isovue 200 M was injected into the spinal canal. There is good opacification of the spinal fluid. The nerve root sheaths are asymmetrically identified. There is no extradural defects. The patient is status post laminectomy and fusion at the L3-L4 and L4-L5 levels. RAD/Lumbar Myelogram IMPRESSION: Normal lumbar myelogram. Electronically Signed: Jacobo Cazares MD at 10:43 EDT ,
[2022-04-11 08:53] VITALS: BP 135/69; PULSE 91; RESP 16; TEMP 36.1; O2SAT 98; BMI 33.6
[2022-04-11] MEDS: Lidocaine 2% (5ml sdv) 5 ML VIAL.MPF INFILT (09:20)
[2022-04-11 09:46] VITALS: BP 141/91; PULSE 88; RESP 14; O2SAT 99
[2022-04-11 10:15] VITALS: BP 143/87; PULSE 88; RESP 14; O2SAT 99
== END | disposition home or self-care (01) ==
LOC: RAD 08:21
PROVIDERS: PCP Internal Medicine; Referring Provider Orthopaedic Surgery Orthopaedic Surgery of the Spine; Visit Provider Orthopaedic Surgery Orthopaedic Surgery of the Spine
DX: M47.816 Spondylosis without myelopathy or radiculopathy, lumbar region (principal); M51.36 Other intervertebral disc degeneration, lumbar region; Z98.1 Arthrodesis status
CPT/HCPCS: 62304; 72132; Q9965

== ENCOUNTER → 2022-07-09 | Outpatient (CLI) | payer MEDICAID, SELFPAY ==
--- NOTE | 2022-07-09 15:44 | RAD_ITS ---
STUDY: X-RAY - PELVIS AND LEFT HIP REASON FOR EXAM: Female, 46 years old. PAIN TECHNIQUE: XR Hip Unilateral with Pelvis when performed; 2-3 Views COMPARISON: None. FINDINGS: There is a non-specific bowel gas pattern. Normal visualized soft tissue structures. Spinal fixation hardware. Normal bilateral iliac wings, sacroiliac joints and visualized sacrum. Normal bilateral superior and inferior pubic rami. Normal pubic symphysis. Normal bilateral ischial tuberosities. Normal visualized femoral head. Normal acetabulum. Normal hip joint. RAD/HIP, UNI W/ Pelvis 2-3 Views IMPRESSION: No acute findings. Electronically Signed: Yogi Marino MD at 16:50 EST ,
== END | disposition home or self-care (01) ==
LOC: MTRAD 15:42
PROVIDERS: PCP Internal Medicine; Referring Provider Nurse Practitioner Family; Visit Provider Nurse Practitioner Family
DX: M25.552 Pain in left hip (principal)
CPT/HCPCS: 73502

== ENCOUNTER 2023-04-20 06:32 | Emergency (ER) | payer MEDICAID, SELFPAY ==
[2023-04-20 06:33] VITALS: BP 157/80; PULSE 109; RESP 18; TEMP 36.6; O2SAT 99; BMI 33.3
[2023-04-20 06:46] VITALS: BMI 33.3
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
== END 2023-04-20 08:33 | disposition home or self-care (01) ==
PROVIDERS: Emergency Provider Emergency Medicine; PCP Internal Medicine; Visit Provider Emergency Medicine
DX: M54.16 Radiculopathy, lumbar region (principal); E11.9 Type 2 diabetes mellitus without complications; Z79.4 Long term (current) use of insulin; E78.00 Pure hypercholesterolemia, unspecified; I10 Essential (primary) hypertension; F17.210 Nicotine dependence, cigarettes, uncomplicated; R20.2 Paresthesia of skin; Z79.899 Other long term (current) drug therapy; Z79.84 Long term (current) use of oral hypoglycemic drugs; Z79.85 Long-term (current) use of injectable non-insulin antidiabetic drugs; Z90.49 Acquired absence of other specified parts of digestive tract
CPT/HCPCS: 99284